=== PATIENT | female | born 1960 | race Caucasian/White ===

== ENCOUNTER 2017-02-22 07:21 | Inpatient (IN) | payer OTHER ==
[~2017-02-22] VITALS: Ht 157.5 cm; Wt 87.7 kg
[~2017-02-22 07:21] MED LIST: LANSO30 PO; LISI-357 PO
[2017-02-22 07:24] VITALS: BP 176/104; PULSE 97; RESP 18; TEMP 98.7; O2SAT 94
[2017-02-22] MEDS ORDERED: SODIUM CHLOR 0.9% 1000 ML INJ 1,000 ML IV SCH (07:38)
--- NOTE | 2017-02-22 07:41 | PD ---
HPI Chief Complaint: Abdominal Pain Time Seen by Provider: 07:33 Travel History International Travel<30 days: No Contact w/Intl Traveler<30days: No Traveled to known affect area: No History of Present Illness HPI 56-year-old female here for evaluation of epigastric abdominal pain/chest pain that woke her up from sleep at around 2:00 AM. The pain has been constant, described as a pressure, moderate, no modifying factors. She reports a history of a heart murmur, no other known heart disease. There is family history of heart disease in her father. She has had similar episodes several times in the past and has been worked up by a GI doctor as well as her primary care physician and is scheduled for a CT scan next week. Patient reports also having some vomiting and diarrhea. History of hysterectomy. No other abdominal surgeries. No fevers or chills. No paresthesias or motor deficits. No dyspnea. PFSH Past Medical History Hx Anticoagulant Therapy: Yes (ASA 81MG) Cancer: No Cardiovascular Problems: Yes (MURMUR) Diabetes: No Hepatitis: No Hiatal Hernia: No Thyroid Disease: No ?: Not Past Surgical History Genitourinary Surgery: Yes (fistuloectomy due to андрей rectal absess) Gynecologic Surgery: Yes (uterine ablation) Pacemaker: No Social History Tobacco Use: No (former smoker) Allergies-Medications (Allergen,Severity, Reaction): Coded Allergies: Penicillin (Verified Allergy, Unknown, 02/22/17) n and v Reported Meds & Prescriptions Reported Meds & Active Scripts Active Reported Lisinopril 5 Mg Tab 5 Mg PO DAILY Lansoprazole 30 Mg Capdr 30 Mg PO DAILY Review of Systems Except as stated in HPI: all other systems reviewed are Neg Physical Exam Narrative GENERAL: Well-developed, well-nourished, comfortable, no acute distress. SKIN: Focused skin assessment warm/dry. No rash. HEAD: Atraumatic. Normocephalic. EYES: Pupils equal and round. No scleral icterus. No injection or drainage. ENT: Mucous membranes pink and moist. NECK: Trachea midline. No JVD. CARDIOVASCULAR: Regular rate and rhythm. Distal pulses brisk and equal bilaterally. RESPIRATORY: No accessory muscle use. Clear to auscultation. Breath sounds equal bilaterally. GASTROINTESTINAL: Abdomen soft, nondistended. Mild epigastric tenderness without peritoneal signs. Rest of abdomen is soft and nontender. MUSCULOSKELETAL: No obvious deformities. No clubbing. No cyanosis. No edema. NEUROLOGICAL: Awake and alert. No obvious cranial nerve deficits. Motor grossly within normal limits. Normal speech. PSYCHIATRIC: Appropriate mood and affect; insight and judgment normal. Data Data Last Documented VS Vital Signs Date Time Temp Pulse Resp B/P Pulse Ox O2 Delivery O2 Flow Rate FiO2 02/22/17 07:51 98 Room Air 02/22/17 07:24 98.7 97 18 176/104 Orders Urinalysis - C+S If Indicated (02/22/17 07:32) Complete Blood Count With Diff (02/22/17 07:38) Comprehensive Metabolic Panel (02/22/17 07:38) Lipase (02/22/17 07:38) Prothrombin Time / Inr (Pt) (02/22/17 07:38) Act Partial Throm Time (Ptt) (02/22/17 07:38) Iv Access Insert/Monitor (02/22/17 07:38) Ecg Monitoring (02/22/17 07:38) Oximetry (02/22/17 07:38) Morphine Inj (Morphine Inj) (02/22/17 07:45) Ondansetron Inj (Zofran Inj) (02/22/17 07:45) Sodium Chlor 0.9% 1000 Ml Inj (Ns 1000 M (02/22/17 07:38) Sodium Chloride 0.9% Flush (Ns Flush) (02/22/17 07:45) Electrocardiogram (02/22/17 07:38) Al-Mag Hy-Si 40-40-4 Mg/Ml Liq (Mag-Al P (02/22/17 07:45) Lidocaine 2% Viscous (Xylocaine 2% Visco (02/22/17 07:45) Ckmb (Isoenzyme) Profile (02/22/17 07:38) Troponin I (02/22/17 07:38) Chest, Single Ap (02/22/17 07:38) Aspirin Chew (Aspirin Chew) (02/22/17 07:45) Us Abdomen Gallbladder (02/22/17 ) CKMB (02/22/17 07:49) CKMB% (02/22/17 07:49) Admit Order (Ed Use Only) (02/22/17 10:23) Labs Laboratory Tests Test 02/22/17 02/22/17 07:49 08:54 White Blood Count 11.6 TH/MM3 Red Blood Count 4.85 MIL/MM3 Hemoglobin 13.8 GM/DL Hematocrit 40.8 % Mean Corpuscular Volume 84.0 FL Mean Corpuscular Hemoglobin 28.4 PG Mean Corpuscular Hemoglobin 33.8 % Concent Red Cell Distribution Width 14.8 % Platelet Count 284 TH/MM3 Mean Platelet Volume 8.3 FL Neutrophils (%) (Auto) 91.9 % Lymphocytes (%) (Auto) 4.3 % Monocytes (%) (Auto) 2.9 % Eosinophils (%) (Auto) 0.1 % Basophils (%) (Auto) 0.8 % Neutrophils # (Auto) 10.7 TH/MM3 Lymphocytes # (Auto) 0.5 TH/MM3 Monocytes # (Auto) 0.3 TH/MM3 Eosinophils # (Auto) 0.0 TH/MM3 Basophils # (Auto) 0.1 TH/MM3 CBC Comment DIFF FINAL Differential Comment Prothrombin Time 11.1 SEC Prothromb Time International 1.0 RATIO Ratio Activated Partial 28.5 SEC Thromboplast Time Sodium Level 144 MEQ/L Potassium Level 4.1 MEQ/L Chloride Level 108 MEQ/L Carbon Dioxide Level 26.6 MEQ/L Anion Gap 9 MEQ/L Blood Urea Nitrogen 24 MG/DL Creatinine 0.84 MG/DL Estimat Glomerular Filtration 70 ML/MIN Rate Random Glucose 156 MG/DL Calcium Level 9.0 MG/DL Total Bilirubin 0.3 MG/DL Aspartate Amino Transf 27 U/L (AST/SGOT) Alanine Aminotransferase 31 U/L (ALT/SGPT) Alkaline Phosphatase 80 U/L Total Creatine Kinase 108 U/L Creatine Kinase MB 1.1 NG/ML Troponin I LESS THAN 0.02 NG/ML Total Protein 8.0 GM/DL Albumin 3.9 GM/DL Lipase 104 U/L Urine Collection Type CLEAN CATCH Urine Color YELLOW Urine Turbidity SLIGHT Urine pH 5.5 Urine Specific [place] 1.027 Urine Protein 30 mg/dL Urine Glucose (UA) NEG mg/dL Urine Ketones 15 mg/dL Urine Occult Blood NEG Urine Nitrite NEG Urine Bilirubin NEG Urine Leukocyte Esterase NEG Urine WBC 0-2 /hpf Urine Squamous Epithelial > 8 /hpf Cells Urine Amorphous Sediment MOD Urine Hyaline Casts 0-2 /lpf Microscopic Urinalysis Comment CULT NOT INDICATED Urine Collection Time 0854 [facility] Medical Decision Making Medical Screen Exam Complete: Yes Emergency Medical Condition: Yes Interpretation(s) EKG: Sinus, rate 96, normal axis, normal intervals, T-wave inversions in V1 through V3. Differential Diagnosis ACS, gastritis, peptic ulcer disease, hepatobiliary disease, pancreatitis, Narrative Course Vital signs reviewed. CBC shows WBC 11.6, hemoglobin 13.8, hematocrit 40.8, platelets 284, neutrophils 91.9%. CMP is unremarkable. Lipase is 104. Cardiac enzymes are negative. UA is not suggestive of UTI. Chest x-ray: No acute disease. Right upper quadrant ultrasound: CONCLUSION: 1. Cholelithiasis with mild wall thickening, no pericholecystic fluid. Negative sonographic Quijano's sign 2. Hepatic steatosis. Patient was made aware of all findings. She was given GI cocktail, morphine, and antiemetics, and is feeling improved. Her EKG that showed T-wave inversions in V1 through V3 which are new compared to the prior EKG in our system from 2011. Symptoms could be cardiac in nature. There is negative Quijano sign on exam. Symptoms could also be from biliary colic. I believe the patient is a good candidate for overnight observation in the chest pain center for further cardiac evaluation. She is amenable to this plan. Case discussed with hospitalist Dr. Antonio who will admit the patient to his service. After the patient was admitted, CT abdomen pelvis was ordered by the admitting team in shows signs of acute cholecystitis. I contacted surgical attending Dr. Hoskins who will see the patient in consultation and plans to operate on the patient tomorrow morning here in [place]. The admitting team will write for antibiotics. Diagnosis Primary Impression: Chest pain Qualified Code: R07.9 - Chest pain, unspecified type Additional Impression: Cholelithiasis Qualified Code: K80.20 - Calculus of gallbladder without cholecystitis without obstruction Admitting Information Admitting Physician Requests: Observation Nikolas Fisher MD Feb 22, 2017 07:41
[2017-02-22] MEDS ORDERED: LIDOCAINE VISCOUS 2% SOLN 15 ML UDC PO ONE (07:45)
[2017-02-22] MEDS ORDERED: ONDANSETRON HCL 4 MG/2 ML VIAL IVP ONE (07:45)
[2017-02-22] MEDS ORDERED: ALUMINUM/MAGNESIUM/SIMETH 30 ML CUP PO ONE (07:45)
[2017-02-22] MEDS ORDERED: ASPIRIN 81 MG CHEW TAB PO ONE (07:45)
[2017-02-22] MEDS ORDERED: SODIUM CHLORIDE 0.9% FLUSH 10 ML FLUSH IV FLUSH PRN ×2 (07:45→10:30)
[2017-02-22] MEDS ORDERED: MORPHINE SULFATE 4 MG/ML INJ IV PUSH ONE (07:45)
[2017-02-22 07:51] VITALS: O2SAT 98
[2017-02-22 07:57] LABS: AUTOMATED NEUTROPHIL # 10.7 TH/MM3 (1.8-7.7); BASOPHIL # 0.1 TH/MM3 (0-0.2); BASOPHIL % 0.8 % (0.0-2.0); EOSINOPHIL % 0.1 % (0.0-4.0); HEMATOCRIT 40.8 % (35.0-46.0); HEMO FLAGS DIFF FINAL; LYMPH % 4.3 % (9.0-44.0); LYMPHOCYTE # 0.5 TH/MM3 (1.0-4.8); MEAN CORPUSCULAR HEMOGLOBIN 28.4 PG (27.0-34.0); MEAN CORPUSCULAR HGB CONC 33.8 % (32.0-36.0); MONO % 2.9 % (0.0-8.0); NEUT % 91.9 % (16.0-70.0); PLATELET COUNT 284 TH/MM3 (150-450); RED BLOOD COUNT 4.85 MIL/MM3 (4.00-5.30); RED CELL DISTRIBUTION WIDTH 14.8 % (11.6-17.2); WHITE BLOOD COUNT 11.6 TH/MM3 (4.0-11.0)
[2017-02-22] MEDS ORDERED: LISI-519 PO (07:58)
[2017-02-22] MEDS ORDERED: LANS30CA PO (07:58)
[2017-02-22 08:04] LABS: CHLORIDE 108 MEQ/L (98-107); SODIUM (NA) 144 MEQ/L (136-145)
[2017-02-22 08:08] LABS: ANION GAP 9 MEQ/L (5-15); BICARBONATE 26.6 MEQ/L (21.0-32.0); BLOOD UREA NITROGEN 24 MG/DL (7-18)
[2017-02-22 08:09] LABS: APTT (PATIENT) 28.5 SEC (24.3-30.1); POTASSIUM 4.1 MEQ/L (3.5-5.1); PROTHROMBIN TIME - PATIENT 11.1 SEC (9.8-11.6)
[2017-02-22 08:11] LABS: ALT (GPT) 31 U/L (10-53); AST (GOT) 27 U/L (15-37); GLOMERULAR FILTRATION RATE 70 ML/MIN (>89)
[2017-02-22 08:13] LABS: TOTAL BILIRUBIN ADULT 0.3 MG/DL (0.2-1.0)
[2017-02-22 08:14] LABS: ALKALINE PHOSPHATASE 80 U/L (45-117); CREATINE KINASE 108 U/L (26-192)
[2017-02-22 08:26] LABS: CKMB 1.1 NG/ML (0.5-3.6)
--- NOTE | 2017-02-22 08:55 | RADHPO ---
EXAM DATE/TIME: 02/22/2017 08:39 [facility] COMPARISON: No previous studies available for comparison. INDICATIONS : Off and on chest pain for 1 month, worse today MEDICAL HISTORY : sarcoidosis SURGICAL HISTORY : Right chest melanoma ENCOUNTER: Initial ACUITY: 1 month PAIN SCORE: 6/10 LOCATION: Bilateral lower chest FINDINGS: A single view of the chest demonstrates the lungs to be symmetrically aerated without evidence of mas s, infiltrate or effusion. The cardiomediastinal contours are unremarkable. Osseous structures are intact. CONCLUSION: No acute disease. Jim Cullen MD on February 22, 2017 at 8:53 Board Certified Radiologist. This report was verified electronically.
[2017-02-22 09:00] LABS: BLOOD, URINE NEG (NEG); GLUCOSE,URINE NEG (NEG); KETONE, URINE 15 mg/dL (NEG); NITRITE,URINE NEG (NEG); PH, URINE 5.5 (5.0-8.5)
[2017-02-22 09:01] LABS: METHOD OF COLLECTION CLEAN CATCH; URINE COLOR YELLOW (YELLW/STRAW)
[2017-02-22 09:06] LABS: COMMENT (UR) CULT NOT INDICATED; COMMENT2 (UR) MUCOUS PRESENT; CULTURE IF INDICATED CULT NOT INDICATED; HYALINE CAST, URINE 0-2 /lpf (RARE); SQUAMOUS EPITHELIAL CELL URINE > 8 /hpf (0-5); WBC, URINE 0-2 /hpf (0-5)
--- NOTE | 2017-02-22 09:32 | RADHPO ---
EXAM DATE/TIME: 02/22/2017 09:08 [facility] COMPARISON: No previous studies available for comparison. EXTERNAL COMPARISON : [facility], US LIVER, October 12, 2012 INDICATIONS : Right upper quadrant pain. MEDICAL HISTORY : Gastroesophageal reflux disease. Hypertension. Malignant melanoma. Ulcer. Anemia. SURGICAL HISTORY : Hysterectomy. Uterine ablation. Fistuloectomy. ENCOUNTER: Initial ACUITY: 1 day PAIN SCORE: 6/10 LOCATION: Right upper quadrant MEASUREMENTS: LIVER: 14.1 cm length COMMON DUCT: 6 mm RIGHT KIDNEY: 9.8 x 5.0 x 4.9 cm FINDINGS: LIVER: Increased echotexture without focal lesion or ductal dilatation. COMMON DUCT: No intraluminal mass or stone visualized. GALLBLADDER: Cholelithiasis. Minimal wall thickening, no pericholecystic fluid. Negative sonographic Quijano's sign . PANCREAS: The visualized portions are within normal limits. RIGHT KIDNEY: No evidence of hydronephrosis, stone, or mass. CONCLUSION: 1. Cholelithiasis with mild wall thickening, no pericholecystic fluid. Negative sonographic Quijano's sign 2. Hepatic steatosis. Jim Cullen MD on February 22, 2017 at 9:29 Board Certified Radiologist. This report was verified electronically.
[2017-02-22] MEDS ORDERED: ALPRAZolam 0.25 MG TAB PO PRN (10:30)
[2017-02-22] MEDS ORDERED: NALOXONE HCL 0.4 MG/ML AMP IV PRN (10:30)
--- NOTE | 2017-02-22 10:36 | HHI.HP ---
HPI Service [facility] Primary Care Physician Cesar France MD Admission Diagnosis chest pain, cholelithiasis Diagnoses: (1) Cholecystitis, acute with cholelithiasis (2) Benign labile hypertension (3) Leukocytosis (4) Bandemia (5) Epigastric abdominal pain Chief Complaint: Abdominal pain Travel History International Travel<30 Days: No Contact w/Intl Traveler <30 Da: No Traveled to Known Affected Are: No Sepsis Criteria SIRS Criteria (2 or more): Heart rate over 90, WBC > 45518, < 4000 or > 10% bands Sepsis Criteria (SIRS+source): Infect source susp/known Criteria Outcome: Meets sepsis criteria History of Present Illness 56 year-old female with a history of hypertension, GERD presented to the ED for evaluation of worsening symptoms of epigastric pain, right upper quadrant pain with radiation to her sternum associated with nausea and vomiting without any GI bleed 2 days, rated 10/10 in intensity. The pain is constant and worse with movement. CT abdomen/pelvics positive for cholecystitis. Abnormal lab includes leukocytosis with bandemia. Review of Systems Other 12 systems reviewed and are negative except for the one mentioned in history of present illness Past Family Social History Past Medical History Hypertension GERD Past Surgical History (fistuloectomy due to андрей rectal abscess) (uterine ablation) Reported Medications Lisinopril 5 Mg Tab 5 Mg PO DAILY Lansoprazole 30 Mg Capdr 30 Mg PO DAILY Allergies: Coded Allergies: Penicillin (Verified Allergy, Unknown, 02/22/17) n and v Physical Exam Vital Signs Vital Signs Date Time Temp Pulse Resp B/P Pulse Ox O2 Delivery O2 Flow Rate FiO2 02/22/17 07:51 98 Room Air 02/22/17 07:24 98.7 97 18 176/104 94 Physical Exam GENERAL: This is a well-nourished, well-developed patient, in no apparent distress. SKIN: No rashes, ecchymoses or lesions. Cool and dry. HEAD: Atraumatic. Normocephalic. No temporal or scalp tenderness. EYES: Pupils equal round and reactive. Extraocular motions intact. No scleral icterus. No injection or drainage. ENT: Nose without bleeding, purulent drainage or septal hematoma. Throat without erythema, tonsillar hypertrophy or exudate. Uvula midline. Airway patent. NECK: Trachea midline. No JVD or lymphadenopathy. Supple, nontender, no meningeal signs. CARDIOVASCULAR: Regular rate and rhythm without murmurs, gallops, or rubs. RESPIRATORY: Clear to auscultation. Breath sounds equal bilaterally. No wheezes , rales, or rhonchi. GASTROINTESTINAL: Abdomen soft, tender TP RLQ, nondistended. No hepato- splenomegaly, or palpable masses. Positive bowel sounds MUSCULOSKELETAL: Extremities without clubbing, cyanosis, or edema. No joint tenderness, effusion, or edema noted. No calf tenderness. Negative Homans sign bilaterally. NEUROLOGICAL: Awake and alert. Cranial nerves II through XII intact. Motor and sensory grossly within normal limits. Five out of 5 muscle strength in all muscle groups. Normal speech. Laboratory Laboratory Tests Test 02/22/17 02/22/17 07:49 08:54 White Blood Count 11.6 Red Blood Count 4.85 Hemoglobin 13.8 Hematocrit 40.8 Mean Corpuscular Volume 84.0 Mean Corpuscular Hemoglobin 28.4 Mean Corpuscular Hemoglobin 33.8 Concent Red Cell Distribution Width 14.8 Platelet Count 284 Mean Platelet Volume 8.3 Neutrophils (%) (Auto) 91.9 Lymphocytes (%) (Auto) 4.3 Monocytes (%) (Auto) 2.9 Eosinophils (%) (Auto) 0.1 Basophils (%) (Auto) 0.8 Neutrophils # (Auto) 10.7 Lymphocytes # (Auto) 0.5 Monocytes # (Auto) 0.3 Eosinophils # (Auto) 0.0 Basophils # (Auto) 0.1 CBC Comment DIFF FINAL Differential Comment Prothrombin Time 11.1 Prothromb Time International 1.0 Ratio Activated Partial 28.5 Thromboplast Time Sodium Level 144 Potassium Level 4.1 Chloride Level 108 Carbon Dioxide Level 26.6 Anion Gap 9 Blood Urea Nitrogen 24 Creatinine 0.84 Estimat Glomerular Filtration 70 Rate Random Glucose 156 Calcium Level 9.0 Total Bilirubin 0.3 Aspartate Amino Transf 27 (AST/SGOT) Alanine Aminotransferase 31 (ALT/SGPT) Alkaline Phosphatase 80 Total Creatine Kinase 108 Creatine Kinase MB 1.1 Troponin I LESS THAN 0.02 Total Protein 8.0 Albumin 3.9 Lipase 104 Urine Collection Type CLEAN CATCH Urine Color YELLOW Urine Turbidity SLIGHT Urine pH 5.5 Urine Specific [place] 1.027 Urine Protein 30 Urine Glucose (UA) NEG Urine Ketones 15 Urine Occult Blood NEG Urine Nitrite NEG Urine Bilirubin NEG Urine Leukocyte Esterase NEG Urine WBC 0-2 Urine Squamous Epithelial > 8 Cells Urine Amorphous Sediment MOD Urine Hyaline Casts 0-2 Microscopic Urinalysis Comment CULT NOT INDICATED Urine Collection Time 0854 Result Diagram: 02/22/17 0749 02/22/17 0749 Imaging Last Impressions Chest X-Ray 02/22/17 0738 Signed Impressions: Service Date/Time: Wednesday, February 22, 2017 08:39 - CONCLUSION: No acute disease. Jim Cullen MD Gall Bladder Ultrasound 02/22/17 0000 Signed Impressions: Service Date/Time: Wednesday, February 22, 2017 09:08 - CONCLUSION: 1. Cholelithiasis with mild wall thickening, no pericholecystic fluid. Negative sonographic Quijano's sign 2. Hepatic steatosis. Jim Cullen MD Abdomen/Pelvis CT 02/22/17 0000 Signed Impressions: Service Date/Time: Wednesday, February 22, 2017 11:12 - CONCLUSION: 1. Hepatic steatosis. 2. Cholelithiasis, gallbladder wall thickening and pericholecystic stranding characteristic of cholecystitis. 3. Diverticulosis. Jim Cullen MD Assessment and Plan Problem List: (1) Cholecystitis, acute with cholelithiasis ICD Code: K80.00 Status: Acute (2) Epigastric abdominal pain ICD Code: R10.13 Status: Acute (3) Bandemia ICD Code: D72.825 Status: Acute (4) Benign labile hypertension ICD Code: I10 Status: Acute (5) Leukocytosis ICD Code: D72.829 Status: Acute (6) Chest pain ICD Code: R07.9 Status: Acute Assessment and Plan 56-year-old female with Sepsis: Meets sepsis criteria, Heart rate over 90, WBC > 28963, < 4000 or > 10 % bands, Infect source (cholecystitis);s/p Zosyn IV x 1 in ED, continue with abx pending culture Cholecystitis, acute cholelithiasis Epigastric abdominal pain CT abdomen/pelvics noted and review by me with finding of Cholelithiasis, gallbladder wall thickening and pericholecystic stranding characteristic of cholecystitis Abdomen ultrasound noted a review with finding of Cholelithiasis with mild wall thickening, no pericholecystic fluid. Negative sonographic Quijano's sign Status post Zosyn IV 1;Start Cipro 400mg IV Q12H and Flagyl 500mg IV Q8H General surgery consultation for evaluation for lap cholecystectomy 02/23/17 IV fluid hydration now, full liquid and nothing by mouth after midnight Leukocytosis Bandemia Secondary to above infectious process, treat as above Chest pain Unlikely MT however will rule out ACS per protocol with serial cardiac enzyme and EKGs Benign labile hypertension Start Lopressor twice a day DVT prophylaxis: Bilateral SCDs GI prophylaxis: PPI Code Status Full code Discussed Condition With Patient, ED physician Problem Qualifiers (1) Chest pain: Qualified Code: R07.9 - Chest pain, unspecified type Nitin Antonio MD Feb 22, 2017 10:36
[2017-02-22 10:45] VITALS: BP 144/80; PULSE 94; RESP 18; O2SAT 95
[2017-02-22] MEDS: METOPROLOL TARTRATE 25 MG TAB PO SCH ×2 (10:52→21:00)
[2017-02-22] MEDS ORDERED: NITROGLYCERIN 0.4 MG SL 25 TABS/BTL SL PRN (11:00)
[2017-02-22] MEDS ORDERED: ACETAMINOPHEN 325 MG TAB PO PRN ×2 (11:00)
[2017-02-22] MEDS ORDERED: ACETAMINOPHEN/HYDROcodone 325 MG/5 MG TAB PO PRN (11:00)
[2017-02-22] MEDS ORDERED: oxyCODONE/ACETAMINOPHEN 5 MG/325 MG TAB PO PRN (11:00)
--- NOTE | 2017-02-22 11:41 | RADHPO ---
EXAM DATE/TIME: 02/22/2017 11:12 [facility] COMPARISON: US ABDOMEN - GALLBLADDER, February 22, 2017, 9:08. INDICATIONS : Epigastric pain today. ORAL CONTRAST: No oral contrast ingested. RADIATION DOSE: 24.96 CTDIvol (mGy) MEDICAL HISTORY : Gastroesophageal reflux disease. Hypertension. SURGICAL HISTORY : Hysterectomy. ENCOUNTER: Initial ACUITY: 1 day PAIN SCALE: 3/10 LOCATION: epigastric abdomen TECHNIQUE: Volumetric scanning of the abdomen and pelvis was performed. Using automated exposure control and ad justment of the mA and/or kV according to patient size, radiation dose was kept as low as reasonably achievable to obtain optimal diagnostic quality images. FINDINGS: There is hepatic steatosis. There is mild gallbladder wall thickening, cholelithiasis and mild perich olecystic stranding. This is concerning for cholecystitis. Liver, spleen, pancreas, adrenal glands, k idneys are unremarkable. Stomach unremarkable. Appendix, urinary bladder, and adnexal regions are unr emarkable. The patient is status post hysterectomy. There is diverticulosis of the sigmoid colon and descending colon without diverticulitis. No adenopathy. Lung bases are clear. Osseous structures are intact. CONCLUSION: 1. Hepatic steatosis. 2. Cholelithiasis, gallbladder wall thickening and pericholecystic stranding characteristic of cholec ystitis. 3. Diverticulosis. Jim Cullen MD on February 22, 2017 at 11:37 Board Certified Radiologist. This report was verified electronically.
[2017-02-22] MEDS: SODIUM CHLOR 0.9% 1000 ML INJ 1,000 ML IV SCH (12:42)
[2017-02-22] MEDS: PIPERACIL-TAZO 3.375 GM PREMIX 50 ML IV SCH ×2 (12:42→19:00)
[2017-02-22 14:22] LABS: CREATINE KINASE 77 U/L (26-192)
[2017-02-22] MEDS: metroNIDAZOLE 500 MG INJ 100 ML IV SCH ×2 (15:06→22:00)
[2017-02-22 17:37] VITALS: BP 160/92; PULSE 86; RESP 16; TEMP 97.3; O2SAT 94
--- NOTE | 2017-02-22 18:47 | EKG ---
Date Performed: 02/22/2017 Time Performed: 13:50:38 PTAGE: 56 years EKG: Sinus rhythm . Anterior T wave changes are nonspecific Borderline ECG PREVIOUS TRACING : 02/22/2017 07.43 Compared to prior tracing no significant change DOCTOR: Joyce Lucero Interpretating Date/Time 02/22/2017 18:46:25
--- NOTE | 2017-02-22 19:01 | EKG ---
Date Performed: 02/22/2017 Time Performed: 07:43:30 PTAGE: 56 years EKG: Sinus rhythm Anterior T wave changes are nonspecific Borderline ECG PREVIOUS TRACING : 04/20/2012 12.29 Compared to prior tracing no significant change DOCTOR: Joyce Lucero Interpretating Date/Time 02/22/2017 19:00:58
--- NOTE | 2017-02-22 19:43 | MB ---
cc: BRINDA CHAUDHRY MD DATE OF CONSULTATION 02/22/17 REASON FOR CONSULTATION Acute cholecystitis HISTORY OF PRESENT ILLNESS This is a 56-year-old female who presents with epigastric pain. The patient states that around 2:00 a.m. she woke up with severe epigastric pain associated with nausea, vomiting and diarrhea as well as chills. The pain was persistent and did not improve and, therefore, she presented to the emergency department. She has had about five similar episodes in the past where she has epigastric pain that radiates around the upper abdomen as well as to the back and often wakes her up from sleep. Usually it lasts about four hours, but this episode lasted longer. She was evaluated and noted to have mild leukocytosis of 11,000 and both ultrasound of the gallbladder and CT abdomen and pelvis supported diagnosis of acute cholecystitis. PAST SURGICAL HISTORY 1. Hysterectomy 2. Diagnostic laparoscopy for endometriosis. PAST MEDICAL HISTORY Per the patient, 1. Sarcoidosis, 2. Gastroesophageal reflux disease, 3. Hypertension MEDICATIONS Home medications 1. Lisinopril 2. ALLERGIES PENICILLIN SOCIAL HISTORY No alcohol, tobacco or drug use. FAMILY HISTORY Noncontributory. REVIEW OF SYSTEMS 10-point review of systems negative except as mentioned in the History of Present Illness. PHYSICAL EXAMINATION GENERAL: Well-developed, well-nourished patient, overweight. She is not in distress. VITAL SIGNS: Temperature is 97.3, heart rate 86, respirations 16, blood pressure 160/92. HEAD: Normocephalic, atraumatic. EYES: Pupils equal, react to light bilaterally. ENT: Moist oral mucosa. LUNGS: Clear to auscultation with no wheezing or rhonchi. CARDIOVASCULAR: Regular rate and rhythm. ABDOMEN: Well-healed port site incision in the inferior umbilicus. She has mild tenderness along the entire upper abdomen, right and left side and the epigastrium. There is no rebound or guarding and the Quijano sign is negative. LABORATORY DATA White blood count 11.6. LFTs are normal. Her troponin is normal. INR is 1.0. IMAGING STUDIES Ultrasound of the gallbladder shows cholelithiasis with mild gallbladder wall thickening and hepatic steatosis. CT of the abdomen shows cholelithiasis with wall thickening and pericholecystic stranding and hepatic steatosis. ASSESSMENT/PLAN A 56-year-old female who has acute cholecystitis and she has had multiple episodes of biliary colic in the past. I recommend to proceed with laparoscopic, possible open, cholecystectomy in the morning. I discussed the procedure in detail with the patient including risks and benefits and she desires to proceed. She will remain on Zosyn tonight. MD NOEMI Tidwell/ /7:29 PM /7:36 PM
[2017-02-22 20:41] VITALS: BP 157/97; PULSE 85; RESP 16; TEMP 99; O2SAT 93
[2017-02-22 20:50] LABS: CREATINE KINASE 112 U/L (26-192)
[2017-02-22] MEDS: SODIUM CHLORIDE 0.9% FLUSH 10 ML FLUSH IV FLUSH SCH (21:00)
[2017-02-22] MEDS ORDERED: CIPROFLOXACIN 400 MG PREMIX 200 ML IV SCH (21:00)
[2017-02-22] MEDS ORDERED: TEMAZEPAM 15 MG CAP PO PRN (21:00)
[2017-02-22] MEDS: ONDANSETRON HCL 4 MG/2 ML VIAL IVP PRN (21:34)
[2017-02-23 00:17] VITALS: BP 149/95; PULSE 75; RESP 18; TEMP 98.4; O2SAT 94
[2017-02-23] MEDS: PIPERACIL-TAZO 3.375 GM PREMIX 50 ML IV SCH (01:00)
[2017-02-23 04:19] VITALS: BP 144/87; PULSE 79; RESP 16; TEMP 98; O2SAT 93
[2017-02-23] MEDS: metroNIDAZOLE 500 MG INJ 100 ML IV SCH (05:16)
[2017-02-23] MEDS: ONDANSETRON HCL 4 MG/2 ML VIAL IVP PRN (05:22)
[2017-02-23] MEDS: SODIUM CHLOR 0.9% 1000 ML INJ 1,000 ML IV SCH ×2 (05:23→06:23)
[2017-02-23] MEDS ORDERED: BUPIVACAINE/EPINEPHRINE 0.25% PF 30 ML VIAL ONE (07:18)
[2017-02-23] MEDS: SODIUM CHLORIDE 0.9% FLUSH 10 ML FLUSH IV FLUSH SCH (09:00)
[2017-02-23] MEDS ORDERED: PANTOPRAZOLE SOD 40 MG DELAYED RELEASE TAB PO SCH (09:00)
[2017-02-23] MEDS: METOPROLOL TARTRATE 25 MG TAB PO SCH (09:00)
[2017-02-23] MEDS ORDERED: OXYC1TAB63 PO (09:54)
[2017-02-23] MEDS ORDERED: oxyCODONE/ACETAMINOPHEN 5 MG/325 MG TAB PO PRN ×2 (10:00)
[2017-02-23] MEDS ORDERED: MORPHINE SULFATE 4 MG/ML INJ ONE ×4 (10:12→11:03)
--- NOTE | 2017-02-23 11:33 | HHI.PR ---
Subjective Remarks Follow-up acute cholecystitis 02/23/17-patient seen and examined in PACU, she status post lap cholecystectomy. Vitals stable and she has been clear by general surgery for discharge Objective Vitals Vital Signs Date Time Temp Pulse Resp B/P Pulse Ox O2 Delivery O2 Flow Rate FiO2 02/23/17 11:15 92 16 158/92 94 Nasal Cannula 2 02/23/17 11:00 94 16 160/69 96 Room Air 02/23/17 10:45 95 16 179/91 95 Nasal Cannula 3 02/23/17 10:30 94 16 185/78 96 Nasal Cannula 3 02/23/17 10:15 95 14 178/83 96 Nasal Cannula 3 02/23/17 10:00 96 14 173/74 100 Nasal Cannula 3 02/23/17 09:55 98.1 101 18 171/80 95 Nasal Cannula 3 02/23/17 09:55 98.1 101 18 171/80 95 Nasal Cannula 3 02/23/17 04:19 98.0 79 16 144/87 93 02/23/17 00:17 98.4 75 18 149/95 94 02/22/17 20:41 99.0 85 16 157/97 93 02/22/17 17:37 97.3 86 16 160/92 94 02/22/17 16:05 16 I/O 02/22/17 02/22/17 02/22/17 02/23/17 02/23/17 02/23/17 07:00 15:00 23:00 07:00 15:00 23:00 Intake Total 240 ml 951 ml 900 ml Output Total 100 ml Balance 240 ml 951 ml 800 ml Intake Oral 240 ml IV Total 951 ml Other 900 ml Output Estimated Blood Loss 100 ml Other 0 ml # Voids 2 Result Diagram: 02/22/17 0749 02/22/17 0749 Imaging Last Impressions Chest X-Ray 02/22/17 0738 Signed Impressions: Service Date/Time: Wednesday, February 22, 2017 08:39 - CONCLUSION: No acute disease. Jim Cullen MD Gall Bladder Ultrasound 02/22/17 0000 Signed Impressions: Service Date/Time: Wednesday, February 22, 2017 09:08 - CONCLUSION: 1. Cholelithiasis with mild wall thickening, no pericholecystic fluid. Negative sonographic Quijano's sign 2. Hepatic steatosis. Jim Cullen MD Abdomen/Pelvis CT 02/22/17 0000 Signed Impressions: Service Date/Time: Wednesday, February 22, 2017 11:12 - CONCLUSION: 1. Hepatic steatosis. 2. Cholelithiasis, gallbladder wall thickening and pericholecystic stranding characteristic of cholecystitis. 3. Diverticulosis. Jim Cullen MD Objective Remarks GENERAL: mild distress and lying in PACU bed SKIN: Warm and dry. HEAD: Normocephalic. EYES: No scleral icterus. No injection or drainage. NECK: Supple, trachea midline. No JVD or lymphadenopathy. CARDIOVASCULAR: Regular rate and rhythm without murmurs, gallops, or rubs. RESPIRATORY: Breath sounds equal bilaterally. No accessory muscle use. GASTROINTESTINAL: Abdomen soft, mildly tender, nondistended. inc c/d/i MUSCULOSKELETAL: No cyanosis, or edema. BACK: Nontender without obvious deformity. No CVA tenderness. Procedures Status post left cholecystectomy 02/23/17 A/P Problem List: (1) Cholecystitis, acute with cholelithiasis ICD Code: K80.00 Status: Acute (2) Epigastric abdominal pain ICD Code: R10.13 Status: Acute (3) Bandemia ICD Code: D72.825 Status: Acute (4) Benign labile hypertension ICD Code: I10 Status: Acute (5) Leukocytosis ICD Code: D72.829 Status: Acute (6) Chest pain ICD Code: R07.9 Status: Acute Assessment and Plan 56-year-old female with Sepsis: Resolved, Heart rate over 90, WBC > 52435, < 4000 or > 10% bands, Infect source (cholecystitis);s/p Zosyn IV x 1 in ED, continue with abx pending culture Cholecystitis, acute cholelithiasis Epigastric abdominal pain CT abdomen/pelvics with finding of Cholelithiasis, gallbladder wall thickening and pericholecystic stranding characteristic of cholecystitis Abdomen ultrasound with finding of Cholelithiasis with mild wall thickening, no pericholecystic fluid. Negative sonographic Quijano's sign Status post lap cholecystectomy 02/23/17 and appreciate input from general surgery. Continue with Cipro 400mg IV Q12H and Flagyl 500mg IV Q8H Discharge home today Leukocytosis Bandemia Secondary to above infectious process, treat as above Chest pain ACS ruled out per protocol with serial cardiac enzyme and EKGs Benign labile hypertension Lopressor twice a day DVT prophylaxis: Bilateral SCDs GI prophylaxis: PPI Discharge Planning Discharge patient to home Condition on discharge: Improved Regular Diet as tolerated Ad Andree activity Rx written: See EMR Follow-up with primary care physician in one week Follow-up with general surgery in 2 weeks Problem Qualifiers (1) Chest pain: Qualified Code: R07.9 - Chest pain, unspecified type Nitin Antonio MD Feb 23, 2017 11:33
[2017-02-23] MEDS ORDERED: METO25TA3 PO (11:36)
[2017-02-23] MEDS ORDERED: PERI8.6T PO (11:36)
[2017-02-23] MEDS ORDERED: ONDANSETRON HCL 4 MG/2 ML VIAL IV PUSH ONE (12:00)
[2017-02-23] MEDS ORDERED: PROPOFOL 200 MG/20 ML AMP IV ONE (12:00)
[2017-02-23] MEDS ORDERED: DO NOT ADM ANY ANTICOAGULANT DRUGS PRN (12:30)
[2017-02-23 14:17] VITALS: BP 160/91; PULSE 93; RESP 15; TEMP 96.3; O2SAT 95
--- NOTE | 2017-02-23 17:59 | EC ---
Study Study Date:02/23/2017 STUDY CONCLUSIONS SUMMARY LEFT VENTRICLE: The cavity size was normal. Wall thickness was increased in a pattern of mild LVH. Systolic function was normal. The estimated ejection fraction was 60%. Wall motion was normal; there were no regional wall motion abnormalities. If LV function is below 40, please consider prescribing an ACEI or ARB or document rationale for non-use. PROCEDURE DATA STUDY STATUS: Elective. Procedure: Transthoracic echocardiography. Image quality was good. Scanning was performed from the parasternal, apical, and subcostal acoustic windows. Study completion: The patient tolerated the procedure well. Transthoracic echocardiography. M-mode, complete 2D, complete spectral Doppler, and color Doppler. Patient status: Inpatient. CARDIAC ANATOMY LEFT VENTRICLE: The cavity size was normal. Wall thickness was increased in a pattern of mild LVH. Systolic function was normal. The estimated ejection fraction was 60%. Wall motion was normal; there were no regional wall motion abnormalities. AORTIC VALVE: Trileaflet; normal thickness leaflets. Doppler: Transvalvular velocity was within the normal range. There was no stenosis. No regurgitation. AORTA: Aortic root: The aortic root was normal in size. MITRAL VALVE: Structurally normal valve. Doppler: Transvalvular velocity was within the normal range. There was no evidence for stenosis. Trace regurgitation. LEFT ATRIUM: The atrium was normal in size. RIGHT VENTRICLE: The cavity size was normal. Wall thickness was normal. PULMONIC VALVE: Doppler: Transvalvular velocity was within the normal range. There was no evidence for stenosis. No regurgitation. TRICUSPID VALVE: Structurally normal valve. Doppler: Transvalvular velocity was within the normal range. Trace regurgitation. PULMONARY ARTERY: The main pulmonary artery was normal-sized. Systolic pressure was within the normal range. RIGHT ATRIUM: The atrium was normal in size. PERICARDIUM: There was no pericardial effusion. SYSTEMIC VEINS: Inferior vena cava: The vessel was normal in size. BASIC MEASUREMENTS ADULT NORMAL Left ventricle LV internal dimension, ED, chordal level, *42.9 mm 43-52 PLAX LV internal dimension, ES, chordal level, 32.1 mm 23-38 PLAX Fractional shortening, chordal level, PLAX *25 % >29 LV posterior wall thickness, ED 9.8 mm IVS/LVPW ratio, ED 1.24 <1.3 Ventricular septum Septal thickness, ED 12.2 mm Aortic valve Leaflet separation 19 mm 15-26 Right ventricle RV internal dimension, ED, PLAX 24 mm 19-38 BASIC MEASUREMENTS ADULT NORMAL Aortic valve Leaflet separation 19 mm 15-26 Aorta Root diameter, ED 29 mm 20-37 Left atrium Anterior-posterior dimension, ES 39 mm 19-40 LA/aortic root ratio 1.34 LEGEND: Mean values are shown as u=mean value. Asterisk (*) vega values outside specified normal range. Prepared and signed by Joyce Lucero [id number]
--- NOTE | 2017-02-23 22:36 | EKG ---
Date Performed: 02/22/2017 Time Performed: 20:09:48 PTAGE: 56 years EKG: Sinus rhythm . Anterior T wave changes are nonspecific Borderline ECG PREVIOUS TRACING : 02/22/2017 13.50 Compared to prior tracing no significant change DOCTOR: Joyce Lucero Interpretating Date/Time 02/23/2017 22:36:05
--- NOTE | 2017-02-25 17:02 | MP ---
cc: BRINDA CHAUDHRY MD DATE OF SURGERY: 02/23/2017 PREOPERATIVE DIAGNOSIS: Acute cholecystitis. POSTOPERATIVE DIAGNOSIS Acute cholecystectomy PROCEDURE Laparoscopic cholecystectomy. SURGEON Brinda Chaudhry MD. FLAKER TENDER: Staff. ANESTHESIA: General endotracheal anesthesia SPECIMENS Gallbladder and contents COMPLICATIONS None apparent. ESTIMATED BLOOD LOSS 30 cc OPERATIVE FINDINGS The patient had a edematous gallbladder with thickening of the gallbladder wall. After transection of the cystic duct the clips did fall off and I had to dissect the duct out further and placed PDS Endoloop which was securely in place. PROCEDURE IN DETAIL The patient is a the operating room, placed in supine position. General endotracheal anesthesia was used for the abdomen prepped and draped in usual sterile fashion and a surgical time-out was performed to verify correct patient, procedure and site. The patient was on scheduled antibiotics. A 5 mm incision made to the right and superior to the umbilicus and the abdomen entered using a 5 mm OptiVu trocar under laparoscopic visualization. The abdomen was insufflated 15 mmHg with CO2 gas which the patient tolerated well. She was then placed in reverse Trendelenburg position. A 12 mm port was placed in the epigastrium, a 5 mm port the right upper quadrant and a 5 mm port in the right lateral abdomen. Attention was turned to the right upper quadrant. The gallbladder was inflamed with thickened wall. The dome was grasped and retracted cephalad and the infundibulum retracted laterally. The area of the infundibulum cystic duct junction had dense inflammation. Careful dissection revealed the cystic artery which was clipped proximally, once distally and then transected. The cystic duct was finally teased out using the suction irrigation, careful use of electrocautery and the [place] dissectors. Two clips were placed proximal and one visualized and transected. Unfortunately there is some spillage of bile from the gallbladder. I did place a loop on the end of the gallbladder to keep the bile from spilling. Unfortunately the clips did not remain on the cystic duct either and therefore I carefully dissected the duct more proximally until there was an adequate length, at which time I placed a #1 PDS Endoloop which was firmly secured. The gallbladder was removed from the liver bed using electrocautery. It was removed from the abdomen after enlarging the fascia at the epigastric incision a bit. There were gallstones in the gallbladder. The right upper quadrant was copiously irrigated. There was good hemostasis on the liver bed. In the right lower liver due to retraction for irrigation, there was a small amount of bleeding from an area on the liver and I placed Surgicel to provide hemostasis at that site. The abdomen was then allowed to desufflate and trocars removed. The epigastric fascia was closed with 0 Vicryl suture and skin with subcuticular 4-0 Monocryl as well as Dermabond. The patient tolerated procedure well was extubated and taken to PACU in stable condition. MD NOEMI Tidwell/franco /2:31 PM /4:53 PM
== END 2017-02-23 16:13 | disposition home or self-care (01) | DRG 854 ==
LOC: PHED 07:21 → PHEDA 10:25 → OBSVTOIN 12:34 → PH3A 12:46
PROVIDERS: ADMIT Hospitalist; ATTEND Hospitalist
PROC: 0FT44ZZ Resection of Gallbladder, Percutaneous Endoscopic Approach (ICD-10-PCS; principal; 2017-02-23 08:08)
DX: A41.9 Sepsis, unspecified organism (principal); K80.00 Calculus of gallbladder with acute cholecystitis without obstruction; I10 Essential (primary) hypertension; K21.9 Gastro-esophageal reflux disease without esophagitis; Z87.891 Personal history of nicotine dependence; Z88.0 Allergy status to penicillin
CPT/HCPCS: 71010; 74176; 76705; 80053; 81001; 82550; 82552; 83605; 83690; 84484; 85025; 85610; 85730; 88304; 93005; 93306; 96361; 96374; 96375; J0744; J2270; J2405; J2543; J3010; J7030

== ENCOUNTER 2017-03-01 08:01 | Emergency (ER) | payer OTHER ==
[~2017-03-01] VITALS: Ht 157.5 cm; Wt 86.4 kg
[~2017-03-01 08:01] MED LIST changes: +LANS30CA PO; -LANSO30 PO; -LISI-357 PO; +METO25TA3 PO; +OXYC1TAB63 PO; +PERI8.6T PO
[2017-03-01 08:08] VITALS: BP 171/103; PULSE 97; RESP 16; TEMP 99.2; O2SAT 98
[2017-03-01 08:41] VITALS: BP 119/93; PULSE 85; RESP 18; O2SAT 96
[2017-03-01] MEDS ORDERED: ASPI325T PO (08:41)
[2017-03-01] MEDS ORDERED: LYRI75CA PO (08:49)
[2017-03-01] MEDS ORDERED: ULTR50TA5 PO (08:49)
[2017-03-01] MEDS ORDERED: ACYC800T PO (08:49)
--- NOTE | 2017-03-01 08:51 | PD ---
HPI Chief Complaint: Fever Time Seen by Provider: 08:43 Travel History International Travel<30 days: No Contact w/Intl Traveler<30days: No Traveled to known affect area: No History of Present Illness HPI Patient presents with concerns of a rash under her left breast for one to 2 days. Reports recent surgery. Denies any nausea vomiting diarrhea or fever. Reports it is moderately painful. Denies any new chest pain shortness of breath urinary or bowel symptoms. PFSH Past Medical History Hx Anticoagulant Therapy: Yes (ASA 81MG) Arthritis: Yes Autoimmune Disease: Yes (psoriatic arithiris ) Anxiety: No Depression: No Cancer: Yes Cardiovascular Problems: Yes High Cholesterol: Yes Cerebrovascular Accident: No Diabetes: No Endocrine: No GERD: Yes Genitourinary: No Hepatitis: No Hiatal Hernia: Yes Hypertension: Yes Immune Disorder: Yes Musculoskeletal: No Neurologic: No Psychiatric: No Reproductive: No Respiratory: Yes Radiation Therapy: No Seizures: Yes Thyroid Disease: No Past Surgical History Abdominal Surgery: No AICD: No Arteriovenous Shunt: No Cardiac Surgery: No Ear Surgery: No Endocrine Surgery: No Eye Surgery: No Genitourinary Surgery: No (fistulalectomy ) Gynecologic Surgery: Yes (hysterectomy ) Hysterectomy: Yes Insulin Pump: No Joint Replacement: No Oral Surgery: No Pacemaker: No Thoracic Surgery: Yes (sarcodosis ) Other Surgery: Yes (malignant melanoma rue with lymphnodes removed) Social History Alcohol Use: No Tobacco Use: No (former smoker) Substance Use: No Allergies-Medications (Allergen,Severity, Reaction): Coded Allergies: Penicillin (Verified Allergy, Unknown, 03/01/17) n and v Reported Meds & Prescriptions Reported Meds & Active Scripts Active Era-Colace (Sennosides-Docusate Sodium) 8.6-50 Mg Tab 1 Tab PO BID PRN Metoprolol Tartrate 25 Mg Tab 25 Mg PO BID Oxycodone-Acetaminophen 5-325 mg Tab 1-2 Tab PO Q4H PRN Reported Aspirin 325 Mg Tab 325 Mg PO ONCE Lansoprazole 30 Mg Capdr 30 Mg PO DAILY Review of Systems General / Constitutional: No: Fever Eyes: No: Visual changes HENT: No: Headaches Cardiovascular: No: Chest Pain or Discomfort Respiratory: No: Shortness of Breath Gastrointestinal: No: Abdominal Pain Genitourinary: No: Dysuria Musculoskeletal: No: Pain Skin: No Rash Neurologic: No: Weakness Psychiatric: No: Depression Endocrine: No: Polydipsia Hematologic/Lymphatic: No: Easy Bruising Physical Exam Narrative GENERAL: Well-nourished, well-developed patient. SKIN: Focused skin assessment warm/dry. HEAD: Normocephalic. EYES: No scleral icterus. No injection or drainage. NECK: Supple, trachea midline. No JVD or lymphadenopathy. CARDIOVASCULAR: Regular rate and rhythm without murmurs, gallops, or rubs. RESPIRATORY: Breath sounds equal bilaterally. No accessory muscle use. GASTROINTESTINAL: Abdomen soft, non-tender, nondistended. MUSCULOSKELETAL: No cyanosis, or edema. BACK: Nontender without obvious deformity. No CVA tenderness. Examination of the left breast fold reveals multiple herpetic lesions along the T5-T6 dermatome without cellulitic change Data Data Last Documented VS Vital Signs Date Time Temp Pulse Resp B/P Pulse Ox O2 Delivery O2 Flow Rate FiO2 03/01/17 08:41 82 Room Air 03/01/17 08:41 18 119/93 96 03/01/17 08:08 99.2 MDM Medical Decision Making Medical Screen Exam Complete: Yes Emergency Medical Condition: Yes Differential Diagnosis Shingles, viral exanthem, dermatitis, fabian infection Narrative Course Assessment and plan discussed with patient and at bedside Diagnosis Primary Impression: Shingles Qualified Code: B02.9 - Herpes zoster without complication Patient Instructions: General Instructions Additional Instructions: Patient is scheduled to follow up with PCP on Friday, . Clean and dry, discussed general wound care Med/Other Pt SpecificInfo: Prescription(s) given Scripts Pregabalin (Lyrica)75 Mg Cap75 Mg PO DAILY #10 CAP Ref 0 Prov:Sathya Dao MD 03/01/17 Tramadol (Ultram)50 Mg Tab50 Mg PO Q8H PRN (PAIN) #20 TAB Ref 0 Prov:Sathya Dao MD 03/01/17 Acyclovir 800 Mg [id number] Mg PO TID 7 Days Ref 0 Prov:Sathya Dao MD 03/01/17 Disposition: 01 DISCHARGE HOME Condition: Good Sathya Dao MD March 01, 2017 08:51
== END 2017-03-01 09:02 | disposition home or self-care (01) ==
LOC: PHED 08:01
DX: B02.9 Zoster without complications (principal); Z79.82 Long term (current) use of aspirin
CPT/HCPCS: 99282